=== PATIENT | female | born 1990 | race Caucasian/White ===

== ENCOUNTER 2024-03-10 08:33 | Outpatient (CLI) | payer OTHER, SELFPAY | END 2024-03-10 08:34 | disposition home or self-care (01) | LOC: NFLDREF 03-12 00:30 | PROVIDERS: Visit Provider Obstetrics & Gynecology | DX: Z34.93 Encounter for supervision of normal pregnancy, unspecified, third trimester (principal); Z3A.28 28 weeks gestation of pregnancy | CPT/HCPCS: 86592; 86787; 86803 ==

== ENCOUNTER 2024-04-24 08:59 | Outpatient (CLI) | payer OTHER, SELFPAY ==
[2024-04-24 15:06] LABS: Chlamydia DNA Amplified* NOT DETECTED (No Detected); GC DNA Amplified* NOT DETECTED (No Detected)
[2024-04-25 12:11] LABS: Strep B DNA Probe POSITIVE (Negative)
[2024-04-25 12:33] LABS: Strep B Susceptibility Needed? No
== END 2024-04-24 09:00 | disposition home or self-care (01) ==
PROVIDERS: Visit Provider Obstetrics & Gynecology
DX: Z34.83 Encounter for supervision of other normal pregnancy, third trimester (principal)
CPT/HCPCS: 87081; 87491; 87591; 87653

== ENCOUNTER 2024-05-27 10:14 | Inpatient (IN) | payer OTHER, SELFPAY ==
[2024-05-27] VITALS (46 sets, daily range): BP systolic 100–196; BP diastolic 56–129; PULSE 61–96; RESP 15–18; TEMP 36.4–37.2; O2SAT 97–99; BMI 35.9
[2024-05-27 09:52] LABS: Amnisure Rom* POSITIVE
--- NOTE | 2024-05-27 10:03 | P.LDBA_ITS ---
Subjective History of Present Illness Time Seen by Provider: 10:07 Date Seen: 05/27/24 Narrative: Patient is being admitted to Labor and Delivery after SROM. She is a 34 year old at 39 6/7 weeks gestation. Her full history and physical was dictated by Dr. BARBOSA on 05/09/24. Please see this for details. Patient presents with concerns for watery like vaginal discharge, AmniSure confirms SROM. Specific Issues/Plans Partner: Arash Adam. Son: Elliot. Baby girl! Marline # Transfer at 24+1 from [place] # History of PPROM @ 34 09/26 # history of molar - Send placenta for pathology - [facility] [place] at 6 week #GC/chlam: neg/neg at 35 weeks as not seen in outside records labs 11/22/2023: O positive Negative antibody screen Hemoglobin 13.2 Platelets 254 Rubella immune RPR nonreactive Hepatitis B surface antigen negative HIV nonreactive Urine culture negative Pap 12/23/2021:NIL/-HPV Genetic screening 11/22/2023 Maternity T21: Negative Imaging: First-trimester ultrasound: Not included records, requested. Referenced at first OB visit, performed at 13 weeks, and that it was consistent with LMP 01/08/2024 FAS level 2 and MFM consult: Posterior placenta, no previa. Normal anatomy. EFW 47% TDAP:03/25/24 RSV:04/24/24 GBS: Positive 04/24/24 H&P by FAMILIA on 05/09/24 OB - Problem Based A/P Additional Plan (1) SROM (spontaneous rupture of membranes): Status: Acute Plan 1. SROM confirmed with positive AmniSure. Admit and expect a vaginal delivery, if needed will recommend to augment with Oxytocin. 2. GBS positive, start ampicillin ÁNGEL. 3. Candidate for pain management as needed. 4. Plan to send placenta to pathology due to history of molar . OB Exam Physical Exam Vital signs: Temp Pulse Resp BP 98.1 F 93 16 118/72 05/27/24 09:48 05/27/24 09:48 05/27/24 09:48 05/27/24 09:48 Detailed Labor and Delivery Exam Patient Gravid: Yes Dilation (cm): 3 Effacement (%): 40 Tachysystole: No Contraction intensity: Mild Fetus (Single) Station: -3 Amniotic Membrane Status: SROM Heart Rate Baseline: 140 Monitor Accelerations: Present Monitor Decelerations: None Retirement Variability: Moderate (6-25)
[2024-05-27 10:34] LABS: Basophils Percent Auto 0.6 % (0.0-3.0); Eosinophils Percent Auto 0.8 % (0.0-7.0); Hematocrit 37.7 % (33.0-51.0); Hemoglobin* 12.6 gm/dL (12.0-16.0); Immature Granulocytes Pct Auto 0.3 %; Lymphocytes Percent Auto 13.8 % (20-44); Mean Corpuscular HGB Conc 33 gm/dL (32-36); Mean Corpuscular Hemoglobin 29 pg (26-34); Mean Corpuscular Volume 86 fL (80-100); Monocytes Percent Auto 4.2 % (0.0-11.0); Neutrophils Percent Auto 80.3 % (42.0-72.0); Platelet Count* 238 K/uL (140-440); RDW Coefficient of Variation % 13.5 % (11.5-15.5); Red Blood Count 4.39 m/uL (4.00-5.20)
[2024-05-27 10:37] LABS: Slide Review Reflex No
[2024-05-27] MEDS: AMPICILLIN 2 GM in 0.9 % SODIUM CHLORIDE Mini-bag 100 ML IVPB (10:40)
[2024-05-27] MEDS: LACTATED RINGERS 1000 ML 1,000 ML 125 ML IV (10:40)
[2024-05-27] MEDS: AMPICILLIN 1 GM in 0.9 % SODIUM CHLORIDE Mini-bag 100 ML IVPB ×2 (15:27→19:21)
--- NOTE | 2024-05-27 15:40 | P.OBPN_ITS ---
Subjective Time Seen by Provider: 15:40 Date Seen: 05/27/24 Narrative: Okay Objective Vital Signs: Last Vital Signs Temp 97.9 F 05/27/24 14:54 Pulse 72 05/27/24 13:13 Resp 16 05/27/24 14:54 BP 117/73 05/27/24 13:13 Pulse Ox 97 05/27/24 11:28 Pelvic Exam Dilation (cm): 4.5 Effacement (%): 75 Station: -2 Contractions Monitor mode: External Contraction pattern: Regular Contraction intensity: Moderate Assessment Station: -2 Amniotic Membrane Status: SROM Status: Category l Heart Rate Baseline: 135 Interior Decorator Variability: Moderate (6-25) Monitor Accelerations: Present Monitor Decelerations: Early Plan Plan: Patient would like to avoid oxytocin for the moment, encouraged nipple st imulation and has been doing some pumping. There has been progress on dilation and contractions have continued to be regular and after pumping patient is describing contractions as more painful. I did discuss with her that concern after prolonged SROM is that of infection and that we would recommend if there is concern that labor has stalled to start IV Oxytocin. Patient is in agreement, she would like to try pumping for a while longer, reassess cervix and symptoms in 4 hours and if no significant progress then start Oxytocin and most likely get an epidural. Will f/u closely.
[2024-05-27] MEDS: LIDOCAINE 2% (PF) 5 ML VIAL EPIDURAL (17:51)
[2024-05-27] MEDS: fentaNYL 250 MCG/5 ML inj 100 MCG EPIDURAL (18:05)
[2024-05-27] MEDS: ROPIVACAINE 0.2% 100 ml 100 ML 12 MG EPIDURAL (18:06)
--- NOTE | 2024-05-27 18:14 | P.ANBPRC_ITS ---
[facility] Medical History History of molar ?Z87.59 - Personal history of other complications of , childbirth and the puerperium (ICD-10) Surgical History History of D&C ?Z98.890 - Other specified postprocedural states (ICD-10) Family History Father High blood pressure Maternal Grandmother Cervical cancer Social History Narrative: Occupation: Childcare. Marital status: . Mandaeism/cultural needs: no. Chemical or radiation exposure: no. Pre- tobacco use: no. Pre- alcohol use: 0-1 per day. Current tobacco use: no. Current alcohol use: no. Recreational drug use: no. Dietary restrictions: no. Blood transfusion a cceptable in an emergency: yes. PSYCHOSOCIAL HISTORY: History of depression or currently depressed: no. Current or past physical, emotional, or sexual mistreatment: no. Problems that will make it hard to make it to appointments: no. What is your current living situation?: I presently have a place to live Problems where you live: no known problems In the past 12 months, utilities in danger of being shut off: no In past 12 months, lack of transportation kept you from medical appts, meetings, work, or getting things needed for daily living: no In the past 12 mos, have been you worried that your food would run out before y ou had money to buy more?: never true In the past 12 mos, the food you bought just didn't last and you didn't have money to buy more?: never true Smoking Status: Never smoker How often does anyone, including family, friends and others, physically hurt you : never How often does anyone, including family, friends and others, insult or talk down to you: never How often does anyone, including family, friends and others, threaten you with harm: never How often does anyone, including family, friends and others, scream or curse at you: never Little interest or pleasure in doing things: not at all Feeling down, depressed, or hopeless: not at all Meds Home Medications and Allergies Home Medications ?Medication ?Instructions ?Recorded ?Confirmed ?Type [id number] 3-fat com #1 27 1 cap PO DAILY 02/07/24 05/27/24 History mg-1 mg-300 mg capsule acetaminophen 500 mg tablet 1,000 mg PO Q6H PRN 05/23/24 05/27/24 History (Tylenol Extra Strength) Allergies Allergy/AdvReac Type Severity Reaction Status Date / Time No Known Drug Allergies Allergy Verified 05/23/24 09:19 Results Labs Labs: Laboratory Results - last 24 hr 05/27/24 05/27/24 09:43 10:28 WBC 11.50 H RBC 4.39 Hgb 12.6 Hct 37.7 MCV 86 MCH 29 MCHC 33 RDW Coeff of [place] 13.5 Plt Count 238 Neut % (Auto) 80.3 H Lymph % (Auto) 13.8 L [place] % (Auto) 4.2 Eos % (Auto) 0.8 Baso % (Auto) 0.6 Neut # (Auto) 9.20 H Lymph # (Auto) 1.60 [place] # (Auto) 0.50 Eos # (Auto) 0.10 Baso # (Auto) 0.10 Abs Immat Gran (auto) 0.00 Imm/Tot Granulo (auto) 0.3 Membrane Rupture POSITIVE Blood Type O Positive Antibody Screen NEGATIVE Vital Signs Vital Signs: Last Vital Signs Temp 97.6 F 05/27/24 18:04 Pulse 80 05/27/24 18:10 Resp 15 05/27/24 18:04 BP 114/78 05/27/24 18:10 Pulse Ox 98 05/27/24 18:13 Weight: 107.093 kg Height: 172.72 cm Anesthesia Procedures Epidural Insertion Patient Location: OB Start Time: 17:30 Stop Time: 18:30 Start Date: 05/27/24 Stop Date: 05/27/24 Reason for Block: primary anesthetic Patient Position: sitting Performed By: Sean Curtis Preanesthetic Checklist: IV checked, risks and benefits discussed, surgical consent, monitors and equipment checked, pre-op evaluation, timeout performed and anesthesia consent Prep: chlorhexidine gluconate Monitoring: blood pressure monitoring, recep, continuous pulse oximetry and heart rate Approach: midline Vertebral Space: lumbar (1-5) Needle Type: Tuohy needle Injection Technique: continuous catheter Needle gauge: 17 Needle Length (cm): 10 cm Needle Insertion Depth (cm): 6 Catheter Gauge: 19 Catheter Type: multi-orifice Catheter at skin depth (cm): 12 Test Dose Result: negative and lidocaine 1.5% with epinephrine 1 to 200,000 Events: other
[2024-05-27] MEDS: OXYTOCIN 30 unit/500 ML in NS 30 UNIT/500 ML BAG 300 UNIT IVPB (20:30)
--- NOTE | 2024-05-27 20:43 | W.PM.OBVAGDE ---
OB Procedure Vag Delivery Mother Details Mother Details: The patient is a 34 year-old, 2, Para 1, admitted on 05/27/24 at 39.6Days gestation after SROM. Patient experiencing regular mild contractions, preferred to try nipple stimulation instead of Oxytocin and she proceeded to pump, this helped her continue to dilate and progressed normally w/o additional interventions. : 2 Para: 2 Weeks Gestation: 39.6 Admission Date: 05/27/24 Additional Details Amniotic Membrane Status: SROM Amniotic Membrane Rupture Date: 05/27/24 Amniotic Membrane Rupture Time: 07:30 Amniotic Membrane Fluid Description: Clear Analgesia/Anesthesia Type: Epidural Waterbirth: No Pitcoin: No Intrapartal Events: None Labor Onset: 18:00 Complete: 20:12 Pushin:12 Heart: heart tones during second stage were category 2. Had a prolonged deceleration while and with the next push head delivered. There was a nuchal cord and this was reduced after delivery of head, followed immediately by delivery of the body. Delivery Details Delivery Date: 05/27/24 Delivery Time: 20:17 Route of delivery: Gender: Female Viability: Alive; Heart Rate Present Position at Delivery: OA Delivery Details: Delivered over intact perineum via spontaneous vaginal delivery. Infant was placed on maternal abdomen.? Cord was clamped and cut after a 30-60 second delay. Nose and mouth were bulb suctioned.? weight 7 pounds and 14 ounces. Baby was taken to warmer, had lots of secretions removed and received a bit of CPAP. 1 Minute Interval Total Score: 6 5 Minute Interval Total Score: 8 Additional Details Shoulder Dystocia: No Placenta Delivery Time: 20:23 Placental Delivery Description: Spontaneous Delivery repair: Vicryl Procedure Done: Global Blood Loss: 150 Laceration: Perineal - 1st Degree Episiotomy Description: None Blood Loss Measurement Type: QBL Bakri Used: No Sponge/Need Count Correct: Yes Cord Vessel Description: 3 Vessels and Nuchal Cord Event Summary Status: Mother and infant were stable after delivery. Disposition: floor
[2024-05-28 00:01] VITALS: BP 111/73; RESP 18; TEMP 36.8
[2024-05-28 03:26] VITALS: BP 112/72; PULSE 77; RESP 16; TEMP 37.1
[2024-05-28 06:35] LABS: Hemoglobin* 12.6 gm/dL (12.0-16.0)
--- NOTE | 2024-05-28 08:55 | PM.OBPNVD1 ---
OB - PN:Subj Subjective Date Seen: 05/28/24 Narrative: Reshma is a 34 y.o. who was admitted to L & D for SROM. ?She had an uncomplicated NVD.?The patient feels well. ?The pain is well controlled with current medications. ?She has no new complaints. ?She is breast feeding and reports things are going poorly as baby is too sleepy to latch. She is spoon feeding and desires a visit.? the patient has done well.? Vitals have been stable.? She has remained afebrile.? Has a good appetite, is tolerating a general diet. ?She is voiding without difficulty.? She is passing gas and has not had a bowel movement.? She is ambulating and denies any dizziness.? Has Small amount of rubra lochia. ?She is planning Vasectomy for prevention. OB - PN: Obj Exam Physical Exam: Vital signs: Temp Pulse Resp BP Pulse Ox O2 Del Method 98.7 F 77 16 112/72 98 Room Air 05/28/24 03:26 05/28/24 03:26 05/28/24 03:26 05/28/24 03:26 05/27/24 18:23 05/28/24 03:26 Narrative: GENERAL APPEARANCE:? normal affect, alert, no distress MOOD:? appropriate EXTREMITIES:? normal and minimal edema OB - PN: Obj Data Labs Labs: Laboratory Results - last 24 hr 05/27/24 05/27/24 05/28/24 09:43 10:28 06:25 WBC 11.50 H RBC 4.39 Hgb 12.6 12.6 Hct 37.7 MCV 86 MCH 29 MCHC 33 RDW Coeff of [place] 13.5 Plt Count 238 Neut % (Auto) 80.3 H Lymph % (Auto) 13.8 L [place] % (Auto) 4.2 Eos % (Auto) 0.8 Baso % (Auto) 0.6 Neut # (Auto) 9.20 H Lymph # (Auto) 1.60 [place] # (Auto) 0.50 Eos # (Auto) 0.10 Baso # (Auto) 0.10 Abs Immat Gran (auto) 0.00 Imm/Tot Granulo (auto) 0.3 Membrane Rupture POSITIVE Blood Type O Positive Antibody Screen NEGATIVE OB - PN: A/P Delivery Assessment and Plan (1) care and examination of lactating mother: Status: Acute (2) First degree perineal laceration: Status: Acute Plan , may see if needed? Hgb 12.6. ? Plan day: 1 Plan: routine care
[2024-05-28 09:00] VITALS: BP 110/75; PULSE 76; RESP 16; TEMP 36.7; O2SAT 97
[2024-05-28 13:15] VITALS: BP 107/70; PULSE 86; RESP 16; TEMP 36.7; O2SAT 97
--- NOTE | 2024-05-28 14:11 | PM.ANPOST ---
Post Anesthesia Note Post Anesthesia Note Patient seen: Inpatient Respiratory Status: adequate Cardiovascular Status: adequate Mental Status: baseline Pain: adequate Temp: baseline Anesthetic awareness: N/A Complications: none Follow care: none
[2024-05-28 18:54] VITALS: BP 113/75; PULSE 75; RESP 16; TEMP 36.9; O2SAT 96
[2024-05-29 00:01] VITALS: BP 112/72; PULSE 74; RESP 18; TEMP 36.9
[2024-05-29 01:01] LABS: Rapid Plasma Reagin (RPR) Non Reactive (Non Reactive)
--- NOTE | 2024-05-29 07:45 | P.DS_ITS ---
DS: Providers Provider Date Seen: 05/29/24 Date of admission: 05/27/24 10:14 Primary care physician: Not a Local Provider Admitting Clinician: Natacha Jin MD Attending Physician on discharge: Annika Guerra CNM DS: Diagnosis Discharge Diagnosis (1) care and examination of lactating mother: Status: Acute Exam Narrative: Exam Narrative: GENERAL APPEARANCE:? normal affect, alert, no distress MOOD:? appropriate CHEST:? clear to auscultation HEART:? regular rate and rhythm ABDOMEN:? soft, non-tender the uterine fundus is at Umbilicus, Midline and is appropriate for the stage of recovery. PERINEUM:? mild edema of the perineum, there is a Perineal Laceration,?1st degree that is healing well. EXTREMITIES:? normal and no edema Const: Vital Signs, click to edit/add: Vital Signs - 24 hr 05/28/24 09:00 05/28/24 13:15 05/28/24 18:54 Temperature 98.1 F 98.1 F 98.5 F Pulse Rate [Blood Pressure Cuff] 76 86 75 Respiratory Rate 16 16 16 Blood Pressure [Le ft Arm] 110/75 107/70 113/75 Pulse Oximetry 97 97 96 Oxygen Delivery Me thod Room Air Room Air Room Air 05/29/24 00:01 Temperature 98.5 F Pulse Rate [Blood Pressure Cuff] 74 Respiratory Rate 18 Blood Pressure [Le ft Arm] 112/72 Pulse Oximetry Oxygen Delivery Me thod Room Air Documenting provider has reviewed patient's vital signs: yes OB - DS: Summary Hospital Course Hospital Course: Reshma is a 34 y.o. G 2 P 2 who was admitted to L & D for SROM. ?She had a NVD that was uncomplicated. The patient feels well. ?The pain is well controlled with current medications. ?She has no new complaints. ?She is breast feeding and reports things are going difficulty, baby having difficulty with latch. the patient has done well.? Vitals have been stable.? She has remained afebrile.? Has a good appetite, is tolerating a general diet. ?She is voiding without difficulty.? She is passing gas and has not had a bowel movement.? She is ambulating and denies any dizziness.? Has small amount of rubra lochia. She is undecided for prevention. Problems: concerns plan: Discharge home with baby. Follow up in 2 weeks and 6 weeks. , may see if needed. She is uncertain if she wants to continue with . Support given to make the decision that best fits her. Hgb 12.6. Peripartum Data delivery method: Vaginal Laceration description: Perineal - 1st Degree complications: none Infant Gender: Female Discharge Plan: Home Status at Discharge Functional status at discharge: independent ambulation Overall status at discharge: patient is progressing back to baseline Time Spent with Patient Time attestation: Total time spent providing and/or coordinating discharge services: Time spent: Less than 30 minutes Discharge Plan Discharge Disposition: Home, Self-Care Date of Admission: 05/27/24 10:14 Attending Provider on Discharge: Annika Guerra Primary Care Provider: Provider,Not a Local Condition: Stable Anticipated Discharge Date/Time: 05/29/24 12:00 Discharge Medications: New docusate sodium [Stool Softener] 100 mg capsule 100 mg PO DAILY PRN (Reason: constipation) Qty: 10 0RF acetaminophen 500 mg Tablet 1,000 mg PO Q6H PRNQty: 0 0RF ibuprofen 600 mg Tablet 600 mg PO Q6H PRNQty: 0 0RF Continued ZFP-[id number]-AO-omega 3-fat com #1 27-1-300 mg capsule 1 cap PO DAILY acetaminophen [Tylenol Extra Strength] 500 mg tablet 1,000 mg PO Q6H PRN Discharge Orders: Discharge Order (Routine); Ordered 05/29/24 Ordered By: Annika Guerra Patient Education: OB Over the Counter Medication Information, OB Vaginal/Breast Feeding Additional Instructions: Discharge instructions were reviewed with the patient including signs and symptoms of infection and home going medications Nothing vaginally for 6 weeks: no tampons or intercourse Off Work or School for 6 weeks 2-week visit: discuss feeding concerns, review control options and screen for anxiety/depression. 6-week visit for an annual exam. consultation services are available to all mothers and babies for the first year after delivery.? To make an appointment, please call [phone]. Activity Level: Activity as Tolerated Discharge Diet: Regular Follow Up Appointments: [facility] [Provider Group] Forms: [employer] Info Instructions
[2024-05-29 08:18] VITALS: BP 109/78; PULSE 88; RESP 16; TEMP 36.6; O2SAT 96
== END 2024-05-29 10:02 | disposition home or self-care (01) | DRG 807 ==
LOC: OB OUT 10:14 → OB 05-28 08:15
PROVIDERS: Admitting Provider Obstetrics & Gynecology; Visit Provider Obstetrics & Gynecology
DX: O42.02 Full-term premature rupture of membranes, onset of labor within 24 hours of rupture (principal); Z37.0 Single live birth; O99.824 Streptococcus B carrier state complicating childbirth; Z3A.39 39 weeks gestation of pregnancy; O70.0 First degree perineal laceration during delivery; Z87.59 Personal history of other complications of pregnancy, childbirth and the puerperium
CPT/HCPCS: 01967; 36415; 84112; 85018; 85025; 86592; 86850; 86900; 86901; 88307; G0463; J0290; J2371; J2795; J3010; J7120

== ENCOUNTER 2024-07-08 08:10 | Outpatient (CLI) | payer OTHER, SELFPAY | END 2024-07-08 08:11 | disposition home or self-care (01) | LOC: NFLDREF 07-11 10:41 | PROVIDERS: Visit Provider Registered Nurse | DX: Z39.2 Encounter for routine postpartum follow-up (principal) | CPT/HCPCS: 84702 ==